=== PATIENT | female | born 1960 | race Caucasian/White ===

== ENCOUNTER → 2018-03-03 | Outpatient (CLI) | payer BC | END | disposition home or self-care (01) | LOC: CFH 09:01 | PROVIDERS: ATTEND Internal Medicine | DX: K44.9 Diaphragmatic hernia without obstruction or gangrene (principal) | CPT/HCPCS: 71250 ==

== ENCOUNTER 2020-04-13 10:26 | Day surgery (SDC) | payer BC, OTHER ==
[~2020-04-13] VITALS: Ht 160 cm; Wt 114.0 kg
[~2020-04-13 10:26] MED LIST: ACET-1600 PO; ALPR1TAB6 PO; BUPIVACAINE/EPI 0.5% 1:200K ONE; CHOL10003 PO; CRAN500T2 PO; FAMO-79 PO; INDOCYANINE GREEN 25 MG VIAL ONE; LACT1CAP37 PO; MAGN100T PO; MONT10TA6 PO
[2020-04-13] MEDS ORDERED: CHLORHEXIDINE 15 ML UDC MM STA (10:40)
[2020-04-13 11:05] VITALS: BP 135/84
[2020-04-13] MEDS: LACTATED RINGERS 1,000 ML IV SCH ×2 (11:39→15:41)
[2020-04-13] MEDS ORDERED: MIDAZOLAM 1 MG/ML, 2ML ONE (13:31)
[2020-04-13] MEDS ORDERED: FENTANYL PF 100 MCG/2ML ONE ×3 (13:31→16:07)
[2020-04-13] MEDS ORDERED: SUCCINYLCHOLINE 20 MG/ML, 10ML ONE (13:32)
[2020-04-13] MEDS ORDERED: ROCURONIUM 10MG/ML,5ML ONE (13:32)
[2020-04-13] MEDS ORDERED: DEXAMETHASONE 4 MG/ML, 1ML ONE (13:32)
[2020-04-13] MEDS ORDERED: NEOSTIGMINE 1 MG/ML, 10ML ONE (13:32)
[2020-04-13] MEDS ORDERED: PROPOFOL 10 MG/ML, 20ML ONE (13:32)
[2020-04-13] MEDS ORDERED: GLYCOPYRROLATE 0.2MG/1ML, 5ML ONE (13:32)
[2020-04-13] MEDS ORDERED: CEFAZOLIN 1,000 MG ONE (13:32)
[2020-04-13] MEDS ORDERED: ONDANSETRON 2MG/ML, 2ML ONE (13:32)
[2020-04-13] MEDS ORDERED: BACITRACIN OINT 500U/GM, 15 GM ONE (13:58)
[2020-04-13] MEDS ORDERED: SCOPOLAMINE 1MG PATCH TD STA (14:11)
[2020-04-13] MEDS ORDERED: SCOPOLAMINE 1MG PATCH TD ONE ×2 (14:12→15:00)
[2020-04-13] MEDS ORDERED: SUGAMMADEX 200 MG/2 ML IVPush ONE (14:27)
[2020-04-13] MEDS ORDERED: FENTANYL PF 100 MCG/2ML IV PRN (14:30)
[2020-04-13] MEDS ORDERED: PROMETHAZINE 25 MG/ML, 1ML IVPush PRN (14:30)
[2020-04-13] MEDS ORDERED: morphine SULFATE 10 MG/ML, 1ML IVPush PRN (14:30)
[2020-04-13] MEDS ORDERED: OXYcodone 5 MG/5 ML ORAL.SOL UDC PO PRN (14:30)
[2020-04-13] MEDS ORDERED: HYDROcodone/APAP 7.5-325MG/15ML UDC PO PRN (14:30)
[2020-04-13] MEDS ORDERED: KETOROLAC 30 MG/1 ML IVPush PRN (14:30)
[2020-04-13] MEDS ORDERED: OXYcodone 5 MG/5 ML ORAL.SOL UDC ONE (15:42)
[2020-04-13] MEDS ORDERED: hydrALAzine 20 MG/ML, 1ML IV PRN (17:00)
== END 2020-04-13 18:00 | disposition home or self-care (01) ==
LOC: OUT 10:26
PROVIDERS: ATTEND Surgery
DX: K80.10 Calculus of gallbladder with chronic cholecystitis without obstruction (principal); Z11.59 Encounter for screening for other viral diseases; I10 Essential (primary) hypertension; K21.9 Gastro-esophageal reflux disease without esophagitis; J45.909 Unspecified asthma, uncomplicated; G47.33 Obstructive sleep apnea (adult) (pediatric); E66.01 Morbid (severe) obesity due to excess calories; F41.9 Anxiety disorder, unspecified; Z88.8 Allergy status to other drugs, medicaments and biological substances; Z88.2 Allergy status to sulfonamides; Z79.899 Other long term (current) drug therapy; Z85.828 Personal history of other malignant neoplasm of skin; Z98.890 Other specified postprocedural states; Z68.41 Body mass index [BMI] 40.0-44.9, adult; Z82.49 Family history of ischemic heart disease and other diseases of the circulatory system
CPT/HCPCS: 36415; 47563; 87635; 88304; 93005; J0330; J0690; J1100; J2250; J2405; J2704; J2710; J3010; J7120; S2900